=== PATIENT | female | born 1980 | race Caucasian/White ===

== ENCOUNTER 2017-01-01 15:50 | Outpatient (CLI) | payer OTHER ==
[~2017-01-01] VITALS: Ht 154.9 cm; Wt 62.0 kg
[2017-01-01] MEDS ORDERED: MULTTAB20 PO (16:28)
[2017-01-01] MEDS ORDERED: ANTA500C PO (16:28)
== END 2017-01-01 19:20 | disposition home or self-care (01) ==
LOC: M LDO 15:50
PROVIDERS: ATTEND Advanced Practice Midwife
DX: O62.0 Primary inadequate contractions (principal); Z3A.34 34 weeks gestation of pregnancy

== ENCOUNTER 2017-02-08 12:43 | Inpatient (IN) | payer OTHER ==
[2017-02-08] VITALS (53 sets, daily range): BP systolic 89–132; BP diastolic 53–81
[~2017-02-08] VITALS: Ht 154.9 cm; Wt 64.0 kg
[~2017-02-08 12:43] MED LIST: ANTA500C PO; MULTTAB20 PO
[2017-02-08] MEDS ORDERED: LR 1,000 ML IV SCH (13:41)
[2017-02-08] MEDS ORDERED: LACTATED RINGER'S 1000 ML IV ONE (13:45)
[2017-02-08] MEDS ORDERED: OXYTOCIN DRIP 30 UNITS in APPROPRIATE DILUENT 1 EA IV SCH (13:45)
[2017-02-08 14:19] LABS: MEAN CORPUSCULAR VOLUME 91.7 fl (80.0-96.0); RED CELL DISTRIBUTION WIDTH 12.8 % (11.5-14.5); WHITE BLOOD COUNT 10.8 K/mm3 (4.0-10.0)
[2017-02-08] MEDS ORDERED: FENTANYL 2MCG/ML ROPIVACAINE 0.2% IN 0.9% NACL 200ML IVBAG As Ordered ONE (16:23)
[2017-02-08] MEDS ORDERED: diphenhydrAMINE INJ 50MG/ML VIAL (J1200) IV PRN (18:00)
[2017-02-08] MEDS ORDERED: ePHEDrine SULFATE 25 MG/5 ML(5MG/ML) SYRINGE IV PRN (18:00)
[2017-02-08] MEDS ORDERED: ONDANSETRON 4MG/2ML VIAL (J2405) IV PRN (18:00)
[2017-02-08] MEDS ORDERED: NALOXONE INJ 0.4 MG/1 ML VIAL (J2310) IV PRN (18:00)
[2017-02-08] MEDS ORDERED: REFRIGERATOR IV KEYS XX PRN (18:00)
[2017-02-08] MEDS ORDERED: EPIDURAL COMMENT XX SCH (18:00)
[2017-02-08] MEDS ORDERED: FENTANYL/ROPIVACAINE/NACL BAG 200 ML EPIDURAL SCH (18:00)
[2017-02-08] MEDS ORDERED: LACTATED RINGER'S 1000 ML IV PRN (18:00)
[2017-02-08] MEDS ORDERED: EPIDURAL/PCA KEYS XX PRN (18:00)
[2017-02-08] MEDS ORDERED: MOM 30ML SUSPENSION UDC PO PRN (21:00)
[2017-02-08] MEDS ORDERED: DIBUCAINE 1% OINTMENT 30GM TOP PRN (21:00)
[2017-02-08] MEDS ORDERED: ANUSOL HC CREAM 30GM TOP PRN (21:00)
[2017-02-08] MEDS ORDERED: DOCUSATE SODIUM 100 MG CAP PO PRN (21:00)
[2017-02-08] MEDS ORDERED: METHYLERGONOVINE MALEATE 0.2 MG TAB PO PRN (21:00)
[2017-02-08] MEDS ORDERED: MEASLES,MUMPS,RUBELLA VACCINE INJ (MMR-II) (90707) SC SCH (21:00)
[2017-02-08] MEDS ORDERED: RHOGAM 300 MCG (1500 IU) INJ (J2790) IM SCH (21:00)
[2017-02-08] MEDS ORDERED: ACETAMINOPHEN SUSP DYE FREE 160 MG/5 ML UDC PO PRN (21:15)
[2017-02-08] MEDS ORDERED: LIDOCAINE 1% SDV 5 ML VIAL SC ONE (21:15)
[2017-02-08 21:18] LABS: CORD GAS ABE V -2.3; CORD GAS HCO3 V 22.7 MEQ/L; CORD GAS O2 SAT V 69.5 %; CORD GAS PCO2 V 40.3 mmHg; CORD GAS PH V 7.369 UNITS; CORD GAS PO2 V 29.1 mmHg; CORD GAS SBC V 21.7 MEQ/L
[2017-02-08 21:24] LABS: CORD GAS ABE A -1.8; CORD GAS O2 SAT A 30.6 %; CORD GAS PCO2 A 55.5 mmHg; CORD GAS PH A 7.289 UNITS; CORD GAS PO2 A 21.9 mmHg; CORD GAS SBC A 21.1 MEQ/L; CORD GAS TCO2 A 27.7 MEQ/L
[2017-02-08] MEDS: IBUPROFEN 800 MG TAB PO PRN (21:46)
[2017-02-08] MEDS: ACETAMINOPHEN 500 MG TAB PO PRN (23:13)
[2017-02-09 05:57] VITALS: BP 109/71
[2017-02-09 06:46] LABS: MEAN CORPUSCULAR HEMOGLOBIN 32.6 pg (27.0-33.0); MEAN CORPUSCULAR HGB CONC 34.1 g/dl (32.0-36.5); MEAN CORPUSCULAR VOLUME 95.7 fl (80.0-96.0); RED CELL DISTRIBUTION WIDTH 12.5 % (11.5-14.5); WHITE BLOOD COUNT 14.5 K/mm3 (4.0-10.0)
[2017-02-09] MEDS: IBUPROFEN 800 MG TAB PO PRN ×2 (06:53→15:41)
[2017-02-09] MEDS: PRENATAL VITAMIN TAB PO SCH (07:48)
[2017-02-09] MEDS ORDERED: ADACEL/BOOSTRIX VACCINE (DIPHTH/PERTUSS/ACELL/TETANUS)0.5ML SYR (90715) IM ONE (09:00)
--- NOTE | 2017-02-09 10:38 | IPN ---
DATE OF SERVICE: 02/08/2017 This and patient requested circumcision of their male . After discussing the risks and benefits of circumcision, the medical and nonmedical indications, the penile block, and aftercare, both expressed understanding of penile block and aftercare, signed and witnessed the consent form. We await the clearance by the pizza delivery.
--- NOTE | 2017-02-09 10:52 | HPE ---
DATE OF ADMISSION: 02/08/2017 A 36-year-old 3, para 2, last menstrual period (LMP) 05/06/2016, estimated date of confinement (EDC) 02/10/2017, at 39 and 5 weeks of gestation with spontaneous rupture of membranes. Group B streptococcus (GBS) negative, meconium-stained liquor and prodromal contractions. Risk factor, she is advanced maternal age (AMA) at 36, and she is Rh negative. PAST HISTORY: September 2011 at 41 weeks, female, spontaneous vaginal delivery, epidural, 6 pounds 14 ounces. October of 2013 at 39 weeks, 6 pounds 11 ounce female, vaginal delivery with epidural. LABORATORIES: O negative, HIV negative, hepatitis negative, rapid plasma reagin (RPR) negative , rubella immune, varicella immune, human papillomavirus (HPV) positive, urine negative, gonorrhea and chlamydia are negative. 1-hour glucose 113. Group B streptococcus (GBS) was negative. Blood pressure is 101/58, respirations are 18, pulse is 74, and temperature is 97.6. Urine is 1.010, pH 5, negative negative negative, hemoglobin 12.0, hematocrit 33.3, and platelets are 210. On examination today, she is normocephalic, atraumatic. Neck: Full range of motion. Pupils equal and reactive to light. Category 1 strip with accelerations. Meconium particulate was noted at the vagina. Distal pulses are symmetric. No evidence of deep venous thrombosis (DVT), pulmonary embolism (PE), or superficial phlebitis. Lungs are clear bilaterally to bases. No wheezes or rhonchi. Uterus is nontender. Four-quadrant bowel sounds. Appropriate symphysis fundus height; and as mentioned, category strip 1 with accelerations. There is no rashes or lesions or pruritus. No arthralgia or myalgia. No complaints of cough, wheezes, shortness of breath, or dyspnea on exertion. No chest pain. Not bleeding. Neuro complete. No incontinency, urgency, or frequency. No nausea, vomiting, diarrhea, constipation. No diabetic issues, gynecology ([employer]) issues, HPV positive. PAST MEDICAL HISTORY: Unremarkable. SURGICAL HISTORY: Unremarkable. FAMILY HISTORY: Noncontributory. She does not smoke or drink or abuse drugs. She is . There is no domestic violence. In summary, we have a 39+ week of gestation. On pelvic examination, 2 cm posterior, meconium liquor with particulate, 70% effaced, -2 station. We discussed the meconium issue and the fact we have neonatology there for resuscitation because of the risk of meconium aspiration. We discussed the method of delivery in that at the time of delivery, we would like the head to be out but no active respirations until the visualization and make sure there is no meconium below the cords. The patient understood the plan of attack. We were going to IV hydrate the patient's epidural. At the patient's request, a consult to neonatology, and we do anticipate a vaginal delivery. The patient and the understood the risks of meconium aspiration and agree with the plan. NIRALI
--- NOTE | 2017-02-09 13:02 | DN ---
DATE: 02/08/2017 This lady is 3, para 2 was admitted in active labor with spontaneous rupture of membranes, required a bit of augmentation with Pitocin up to four milliunits, had an epidural in place. Required one dose of Ephedrine because of her low blood pressure and it spontaneously resolved. At full dilatation, she delivered spontaneously a live male infant weighing 7 pounds 10 ounces, 3470 grams, of 9 and 9 at one and five minutes respectively. Cord was around the neck once. Placenta delivered spontaneously thereafter, was meconium stained. Dr. Morin was in attendance for resuscitation. Arterial and venous pH were performed. The uterus contracted well under Pitocin. She had a spontaneous delivery of the placenta, membranes and placenta complete. Examination revealed abrasions of the lower abdomen were evident in the fourchette area. One stitch with #2-0 Vicryl, J339 to oppose the gaping part of the fourchette was done but there was significant bruising the baby was in a POP position with a bit of a synclitism. The patient and baby tolerated procedure well. Uterus contracted well down under Pitocin. Sphincter was intact. Lateral cox were intact. Anterior and posterior cox were intact.
--- NOTE | 2017-02-09 13:14 | IPN ---
DATE OF SERVICE: 02/09/2017 day #1. This lady is a 36-year-old, 3, now para 3, had a spontaneous vaginal delivery, livebirth male infant in good condition. On her first day, we discussed phlebitis, cystitis, mastitis, endometritis, cellulitis, diet, exercise, pain management, perineal, breast, and wound care. Blood pressure is 109/71, respirations 16, pulse 56, temperature is 97.9. Her admitting hemoglobin was 12.0, hematocrit 33.3, platelets are 210. day #1 hemoglobin 10.6, hematocrit 31.2, and platelets are 181. The patient is doing well, voiding, passing gas, and is anxious for discharge tomorrow. We discussed circumcision for her male after medical clearance by the tree killer, and the patient will be given her medications prior to discharge tomorrow morning.
[2017-02-09 17:37] VITALS: BP 105/60
[2017-02-09] MEDS: ACETAMINOPHEN 500 MG TAB PO PRN (20:33)
[2017-02-10 05:35] VITALS: BP 105/67
--- NOTE | 2017-02-10 07:00 | DS.PDOC ---
Discharge Summary General Date of Admission Feb 08, 2017 at 13:08 Date of Discharge [id number] Discharge Summary PROCEDURES PERFORMED DURING STAY: spontaneous vaginal delivery ADMITTING DIAGNOSIS: 1. SROM DISCHARGE DIAGNOSES: 1. Healthy male infant HOSPITAL COURSE: Admitted for active labor and delivery. Uncomplicated, see delivery note. DISCHARGE MEDICATIONS: Motrin, Tylenol, Colace, Nor QD for PP control Physical exam: see note from this morning LABORATORY DATA: Please see below. ACTIVITY: as tolerated. Nothing in vagina for 6 weeks. DIET: regular DISPOSITION:stable TIME SPENT ON DISCHARGE: Greater than 15 minutes. Sessions Vital Signs/I&Os Vital Signs Date Time Temp Pulse Resp B/P (MAP) Pulse Ox O2 Delivery O2 Flow Rate FiO2 02/10/17 05:35 97.9 53 18 105/67 (80) 02/09/17 17:37 98 Room Air Discharge Medications Scheduled (Multi 27-0.8 mg) 1 Tab Tab, 1 TAB PO DAILY, (Reported) Miscellaneous Medications Calcium Carbonate (Antacid) 500 Mg Chw, 500 MG PO, (Reported) Allergies Coded Allergies: No Known Allergies (Unverified , 01/01/17) SESSIONS,RIGOBERTO Galarza MD Feb 10, 2017 07:00
--- NOTE | 2017-02-10 07:13 | IPNPDOC ---
Text Note Date of Service The patient was seen on 02/10/17. NOTE PPD2 prog note States feeling well, no complaints. No heavy VB. Pain controlled. Voiding, ambulatory. Bonding well and breast feeding well. VSSAF CTAB RRR Ut at U-2, firm Ext no CCE a/p: Doing well. d/c this morning. To bonding if baby not released. Sessions VS,Jefferson, I+O VSJefferson, I+O Vital Signs Date Time Temp Pulse Resp B/P (MAP) Pulse Ox O2 Delivery O2 Flow Rate FiO2 02/10/17 05:35 97.9 53 18 105/67 (80) 02/09/17 17:37 98 Room Air SESSIONS,RIGOBERTO Galarza MD Feb 10, 2017 07:13
[2017-02-10] MEDS ORDERED: DIBU1OIN TOP (07:21)
[2017-02-10] MEDS ORDERED: COLA100C3 PO (07:21)
[2017-02-10] MEDS ORDERED: MOTR200T44 PO (07:21)
[2017-02-10] MEDS ORDERED: TYLE325C PO (07:21)
[2017-02-10] MEDS: PRENATAL VITAMIN TAB PO SCH (08:25)
[2017-02-10] MEDS: IBUPROFEN 800 MG TAB PO PRN (08:28)
== END 2017-02-10 12:10 | disposition home health service (06) | DRG 775 ==
LOC: M LDO 12:43 → M LDI 13:08 → M OBS 22:02
PROVIDERS: ADMIT Obstetrics & Gynecology; ATTEND Obstetrics & Gynecology
PROC: 10E0XZZ Delivery of Products of Conception, External Approach (ICD-10-PCS; principal; 2017-02-08)
PROC: 0HQ9XZZ Repair Perineum Skin, External Approach (ICD-10-PCS; 2017-02-08)
DX: O77.0 Labor and delivery complicated by meconium in amniotic fluid (principal); Z37.0 Single live birth; Z3A.39 39 weeks gestation of pregnancy; O69.81X0 Labor and delivery complicated by cord around neck, without compression, not applicable or unspecified; O64.0XX0 Obstructed labor due to incomplete rotation of fetal head, not applicable or unspecified; O70.0 First degree perineal laceration during delivery; Z79.899 Other long term (current) drug therapy